=== PATIENT | male | born 1980 | race Caucasian/White ===

== ENCOUNTER 2016-08-06 10:59 | Day surgery (SDC) | payer OTHER, MEDICAID ==
[~2016-08-06 10:59] MED LIST: ALEVE220 MG PO; ASPIRIN ADULT L81 M2 PO; BACTRIM DS 8001 TAB PO; BENTYL10 M1 PO; CIPRO 500MG TA500 MG PO; EPI-PEN1 MG/ML MR; FLAGYL 500MG.500 MG PO; FLAGYL500 M1 PO; FLEXERIL10 M1 PO; FLEXERIL10 MG PO; KEFLEX 500MG.500 MG PO; LORTAB 5/500 501 TAB PO; MEDROL 4MG. DOSE4 MG PO; MOTRIN 600MG.600 MG PO; NICOTINE PATCH;21 MG TD; NOMEDS; NOMEDS XX; NORCO 325 MG-51 TAB PO; PRAVASTATIN 40M40 MG PO; PREDNISONE 20MG20 MG PO; ROBAXIN-750750 MG PO; TESSALON PERLE100 MG PO; TRAMADOL 50MG T50 MG PO; TRAMADOL50 M1 PO; TYLENOL EXTRA500 M1 PO; ZITHROMAX Z PA250 MG PO
--- NOTE | 2016-08-06 12:36 | Operative Note ---
Colonoscopy ([facility]) Procedure date: 08/06/16 Date of : [birth year] Procedure:Colonoscopy Colonoscopy with cold biopsy Indications: Mr. Lopez is a 36-year-old gentleman who had his second episode of diverticulitis in the first week of June 2016. His first episode was over a year ago. The patient did have a CAT scan that showed uncomplicated diverticulitis. The patient did improve with dietary measures, , [employer] health probiotic and Metamucil. He did receive Cipro and Flagyl for 7-10 days. He does state that his mother had diverticulitis. The patient reports no rectal bleeding, weight loss or family history of colon cancer. Performing Provider: Amrit Rogers MD Referrring Provider: Franky Gastelum M.D. Sedation: Fentanyl 200 mg IV/Versed 12 mg IV Procedure: Prior to the procedure, a history and physical exam was performed, and patient medications and allergies were reviewed. The risks and benefits of the procedure and the sedation options and risks were discussed with the patient. All questions were answered and informed consent was obtained. Patient identification and proposed procedure were verified by the physician and the nurse. The patient was placed in a left lateral decubitus position. Throughout the procedure, the patient's blood pressure, pulse, and oxygen saturations were monitored continuously. Findings: On digital rectal examination there was normal rectal tone. There were no external hemorrhoids. The colonoscope was introduced through the anal canal to the rectum and advanced to the cecum. The ileocecal valve and appendiceal orifice were identified. The scope was advanced a short distance into the ileum which appeared grossly normal. The scope was then withdrawn into the colon. The cecum, ascending and transverse colon and mucosa were grossly normal. There was a single diminutive 5 mm polyp in the descending colon removed via cold biopsy. There were scattered shallow diverticuli throughout the descending and sigmoid colon (LEFT colon). There was some very mild Helsel edema in the sigmoid colon suggestive of resolving sigmoid diverticulitis. The rectum itself was normal. Upon retroflexion within the rectum there were grade 1 internal hemorrhoids. Impressions: 1. Diminutive descending polyp 2. Mild left-sided diverticulosis with evidence of resolving sigmoid diverticulitis 3. Grade 1 internal hemorrhoids Recommendations: I would encourage long-term fiber supplementation (Metamucil) and probiotics. I will follow up the polyp histology and recommend repeat screening/surveillance colonoscopy in 5 years if the polyp is adenomatous. Complications: None EBL (ml): 0 at 0100
[2016-08-06 13:48] VITALS: BP 119/75
== END 2016-08-06 13:35 | disposition home or self-care (01) ==
LOC: SDC 10:59
PROVIDERS: Internal Medicine Gastroenterology
PROC: 0DBM8ZX Excision of Descending Colon, Via Natural or Artificial Opening Endoscopic, Diagnostic (ICD-10-PCS; principal; 2016-08-06 12:00)
DX: K57.30 Diverticulosis of large intestine without perforation or abscess without bleeding (principal); D12.4 Benign neoplasm of descending colon; K64.0 First degree hemorrhoids